=== PATIENT | female | born 1975 | race Caucasian/White ===

== ENCOUNTER → 2017-06-26 | Outpatient (CLI) | payer BC | LOC: LAB 14:52 | DX: R63.4 Abnormal weight loss (principal); R11.2 Nausea with vomiting, unspecified; Z98.84 Bariatric surgery status ==

== ENCOUNTER → 2018-11-04 | Outpatient (CLI) | payer BC ==
[2018-11-04 15:55] LABS: URINE WBC 0 /hpf (0-3)
[2018-11-04 18:27] LABS: ALBUMIN 4.8 g/dL (3.5-5.0); CALCIUM 9.7 mg/dL (8.4-10.2); POTASSIUM 3.8 mmol/L (3.6-5.0); TOTAL BILIRUBIN 0.5 mg/dL (0.2-1.3); TOTAL PROTEIN 7.8 g/dL (6.3-8.2)
[2018-11-04 18:39] LABS: EOS # 0.1 (0.04-0.40); EOS % 1.4 % (1.0-5.0); HEMATOCRIT 42.7 % (37.0-47.0); HEMOGLOBIN 14.1 g/dL (12.5-16.0); MEAN CELL VOLUME 96 fl (78-100); MEAN CORPUSCULAR HEMOGLOBIN 32 pg (27-31); MEAN CORPUSCULAR HGB CONC 33 g/dL (33-37); MEAN PLATELET VOLUME 9.1 fl (7.4-10.4); MONO # 0.4 (0.20-0.80); NEU # 4.6 (1.40-6.50); PLATELET COUNT 296 K/mm3 (130-400); RED BLOOD COUNT 4.46 M/mm3 (4.10-5.30); RED CELL DISTRIBUTION WIDTH 13.7 % (11.5-14.5); WHITE BLOOD COUNT 7.2 K/mm3 (4.8-10.8)
[2018-11-04 20:46] LABS: URINE APPEARANCE CLEAR; URINE COLOR YELLOW
[2018-11-04 20:47] LABS: PH-URINE 6.5 (5.0 - 8.0); URINE GLUCOSE NEGATIVE (NEGATIVE); URINE KETONE NEGATIVE (NEGATIVE); URINE PROTEIN(semi-quant) NEGATIVE (NEGATIVE)
[2018-11-04 20:49] LABS: URINE BILIRUBIN NEGATIVE (NEGATIVE); URINE BLOOD NEGATIVE (NEGATIVE); URINE LEUKOCYTE ESTERASE NEGATIVE (NEGATIVE); URINE NITRATE NEGATIVE (NEGATIVE); URINE UROBILINOGEN NORMAL (NORMAL)
== END ==
LOC: LAB 15:48
PROVIDERS: Family Medicine
DX: R05 Cough (principal); Z11.1 Encounter for screening for respiratory tuberculosis; R50.9 Fever, unspecified; R53.83 Other fatigue; E55.9 Vitamin D deficiency, unspecified; Z98.84 Bariatric surgery status; Z98.890 Other specified postprocedural states

== ENCOUNTER → 2019-02-09 | Outpatient (CLI) | payer BC ==
[2019-02-09 14:41] LABS: EOS # 0.1 (0.04-0.40); EOS % 1.6 % (1.0-5.0); HEMATOCRIT 38.3 % (37.0-47.0); HEMOGLOBIN 12.2 g/dL (12.5-16.0); LYMPH# 1.8 (1.50-4.00); MEAN CELL VOLUME 97 fl (78-100); MEAN CORPUSCULAR HEMOGLOBIN 31 pg (27-31); MEAN CORPUSCULAR HGB CONC 32 g/dL (33-37); MEAN PLATELET VOLUME 8.9 fl (7.4-10.4); MONO # 0.5 (0.20-0.80); NEU # 4.9 (1.40-6.50); PLATELET COUNT 218 K/mm3 (130-400); RED BLOOD COUNT 3.96 M/mm3 (4.10-5.30); RED CELL DISTRIBUTION WIDTH 13.8 % (11.5-14.5); WHITE BLOOD COUNT 7.4 K/mm3 (4.8-10.8)
[2019-02-09 14:49] LABS: CALCIUM 9.1 mg/dL (8.4-10.2); POTASSIUM 3.6 mmol/L (3.6-5.0); TOTAL BILIRUBIN 0.4 mg/dL (0.2-1.3)
== END ==
LOC: LAB 14:22
PROVIDERS: Family Medicine
DX: E87.1 Hypo-osmolality and hyponatremia (principal); G62.9 Polyneuropathy, unspecified

== ENCOUNTER → 2019-02-23 | Outpatient (CLI) | payer BC | LOC: RAD 08:40 | DX: G43.109 Migraine with aura, not intractable, without status migrainosus (principal) | CPT/HCPCS: Q9967 ==

== ENCOUNTER → 2019-08-04 | Outpatient (CLI) | payer BC ==
[2019-08-04 12:01] LABS: ALBUMIN 4.2 g/dL (3.5-5.0)
[2019-08-04 12:02] LABS: EOS # 0.1 (0.04-0.40); EOS % 1.9 % (1.0-5.0); HEMATOCRIT 40.2 % (37.0-47.0); HEMOGLOBIN 13.6 g/dL (12.5-16.0); LYMPH# 2.2 (1.50-4.00); MEAN CELL VOLUME 96 fl (78-100); MEAN CORPUSCULAR HEMOGLOBIN 32 pg (27-31); MEAN CORPUSCULAR HGB CONC 34 g/dL (33-37); MEAN PLATELET VOLUME 9.1 fl (7.4-10.4); MONO # 0.5 (0.20-0.80); NEU # 3.9 (1.40-6.50); PLATELET COUNT 244 K/mm3 (130-400); RED BLOOD COUNT 4.21 M/mm3 (4.10-5.30); RED CELL DISTRIBUTION WIDTH 12.9 % (11.5-14.5); WHITE BLOOD COUNT 6.7 K/mm3 (4.8-10.8)
[2019-08-04 12:03] LABS: CALCIUM 9.3 mg/dL (8.3-10.5)
[2019-08-04 12:04] LABS: TOTAL PROTEIN 7.1 g/dL (6.4-8.3)
[2019-08-04 12:06] LABS: TOTAL BILIRUBIN 0.4 mg/dL (0.2-1.2)
== END ==
LOC: LAB 11:37
PROVIDERS: Family Medicine
DX: E87.1 Hypo-osmolality and hyponatremia (principal); Z98.84 Bariatric surgery status

== ENCOUNTER → 2020-05-17 | Outpatient (CLI) | payer BC | LOC: RAD 12:10 | DX: M89.8X1 Other specified disorders of bone, shoulder (principal) ==

== ENCOUNTER → 2020-10-10 | Outpatient (CLI) | payer BC ==
[2020-10-10 18:34] LABS: EOS # 0.1 (0.04-0.40); EOS % 1.1 % (1.0-5.0); HEMATOCRIT 39.6 % (37.0-47.0); HEMOGLOBIN 12.8 g/dL (12.5-16.0); LYMPH# 2.4 (1.50-4.00); MEAN CELL VOLUME 93 fl (78-100); MEAN CORPUSCULAR HEMOGLOBIN 30 pg (27-31); MEAN CORPUSCULAR HGB CONC 32 g/dL (33-37); MEAN PLATELET VOLUME 8.5 fl (7.4-10.4); MONO # 0.7 (0.20-0.80); NEU # 8.1 (1.40-6.50); PLATELET COUNT 245 K/mm3 (130-400); RED BLOOD COUNT 4.24 M/mm3 (4.10-5.30); RED CELL DISTRIBUTION WIDTH 13.9 % (11.5-14.5); WHITE BLOOD COUNT 11.4 K/mm3 (4.8-10.8)
[2020-10-10 18:53] LABS: ALBUMIN 4.2 g/dL (3.5-5.0); POTASSIUM 3.9 mmol/L (3.5-5.1)
[2020-10-10 18:54] LABS: CALCIUM 8.9 mg/dL (8.3-10.5)
[2020-10-10 18:55] LABS: TOTAL PROTEIN 7.6 g/dL (6.4-8.3)
[2020-10-10 18:57] LABS: TOTAL BILIRUBIN 0.3 mg/dL (0.2-1.2)
== END ==
LOC: LAB 18:07
PROVIDERS: Family Medicine
DX: E87.1 Hypo-osmolality and hyponatremia (principal); E78.5 Hyperlipidemia, unspecified; E53.9 Vitamin B deficiency, unspecified; E55.9 Vitamin D deficiency, unspecified

== ENCOUNTER 2020-11-14 12:03 | Emergency (ER) | payer BC ==
[2020-11-14] MEDS ORDERED: FLOVENT HFA12 G1 IH (12:24)
[2020-11-14] MEDS ORDERED: PREDNISONE20 M1 PO (12:24)
[2020-11-14] MEDS ORDERED: FUROSEMIDE20 MG PO (12:24)
[2020-11-14] MEDS ORDERED: AMOXICILLIN AND1 TA2 PO (12:24)
[2020-11-14 12:48] LABS: HEMOGLOBIN 13.5 g/dL (12.5-16.0); MEAN CELL VOLUME 94 fl (78-100); MEAN CORPUSCULAR HEMOGLOBIN 30 pg (27-31); MEAN CORPUSCULAR HGB CONC 32 g/dL (33-37); PLATELET COUNT 287 K/mm3 (130-400); RED BLOOD COUNT 4.47 M/mm3 (4.10-5.30); RED CELL DISTRIBUTION WIDTH 14.7 % (11.5-14.5); WHITE BLOOD COUNT 12.6 K/mm3 (4.8-10.8)
[2020-11-14 12:53] LABS: ALBUMIN 4.4 g/dL (3.5-5.0); POTASSIUM 3.5 mmol/L (3.5-5.1)
[2020-11-14 12:54] LABS: CALCIUM 8.8 mg/dL (8.3-10.5)
[2020-11-14 12:55] LABS: TOTAL PROTEIN 7.6 g/dL (6.4-8.3)
[2020-11-14 12:57] LABS: TOTAL BILIRUBIN 0.3 mg/dL (0.2-1.2)
[2020-11-14 13:00] LABS: D-DIMER 0.39 mg/L FEU (0.15-0.50)
[2020-11-14 13:10] LABS: LYMPHOCYTE 10 % (20-51); MONOCYTE 3 % (3-10); NEUTROPHILS 85 % (42-75)
[2020-11-14 13:51] LABS: ERYTHROCYTE SEDIMENTATION RATE 24 mm/hr (0-20)
[2020-11-14 15:20] VITALS: BP 107/67
== END 2020-11-14 14:42 | disposition home or self-care (01) ==
LOC: ED 12:03
PROVIDERS: Physician Assistant
DX: U07.1 COVID-19 (principal); J45.909 Unspecified asthma, uncomplicated; Z98.84 Bariatric surgery status; Z90.710 Acquired absence of both cervix and uterus; Z90.49 Acquired absence of other specified parts of digestive tract; Z88.6 Allergy status to analgesic agent; Z79.52 Long term (current) use of systemic steroids

== ENCOUNTER → 2021-02-24 | Outpatient (CLI) | payer BC ==
[~2021-02-24] MED LIST: AMOXICILLIN AND1 TA2 PO; FLOVENT HFA12 G1 IH; FUROSEMIDE20 MG PO; PREDNISONE20 M1 PO
== END ==
LOC: RAD 14:33
DX: M25.522 Pain in left elbow (principal)

== ENCOUNTER → 2021-09-01 | Outpatient (CLI) | payer BC ==
[2021-09-01 11:45] LABS: BASO # 0.03 K/mm3 (0.02-0.10); EOS # 0.08 K/mm3 (0.04-0.40); EOS % 1.1 % (1.0-5.0); HEMATOCRIT 40.1 % (37.0-47.0); HEMOGLOBIN 12.7 g/dL (12.5-16.0); LYMPH# 1.84 K/mm3 (1.50-4.00); MEAN CELL VOLUME 96 fl (78-100); MEAN CORPUSCULAR HEMOGLOBIN 30 pg (27-31); MEAN CORPUSCULAR HGB CONC 32 g/dL (33-37); MEAN PLATELET VOLUME 8.6 fl (7.4-10.4); MONO # 0.46 K/mm3 (0.20-0.80); NEU # 4.56 K/mm3 (1.40-6.50); PLATELET COUNT 275 K/mm3 (130-400); RED BLOOD COUNT 4.19 M/mm3 (4.10-5.30); RED CELL DISTRIBUTION WIDTH 14.3 % (11.5-14.5)
[2021-09-01 11:56] LABS: POTASSIUM 4.4 mmol/L (3.5-5.1)
[2021-09-01 11:57] LABS: ALBUMIN 4.2 g/dL (3.5-5.0)
[2021-09-01 11:59] LABS: TOTAL PROTEIN 7.6 g/dL (6.4-8.3)
[2021-09-01 12:01] LABS: TOTAL BILIRUBIN 0.4 mg/dL (0.2-1.2)
== END ==
LOC: LAB 11:24
PROVIDERS: Family Medicine
DX: Z00.00 Encounter for general adult medical examination without abnormal findings (principal); M25.551 Pain in right hip; E78.5 Hyperlipidemia, unspecified; E55.9 Vitamin D deficiency, unspecified

== ENCOUNTER → 2021-09-12 | Outpatient (CLI) | payer BC | LOC: RAD 07:20 | DX: M51.36 Other intervertebral disc degeneration, lumbar region (principal); M47.817 Spondylosis without myelopathy or radiculopathy, lumbosacral region; M47.816 Spondylosis without myelopathy or radiculopathy, lumbar region ==

== ENCOUNTER → 2021-10-18 | Outpatient (CLI) | payer BC | LOC: RAD 17:22 | DX: M19.042 Primary osteoarthritis, left hand (principal) ==

== ENCOUNTER → 2022-02-02 | Outpatient (CLI) | payer BC ==
[2022-02-02 17:06] LABS: BASO # 0.04 K/mm3 (0.02-0.10); EOS # 0.11 K/mm3 (0.04-0.40); EOS % 1.7 % (1.0-5.0); HEMATOCRIT 40.3 % (37.0-47.0); HEMOGLOBIN 13.4 g/dL (12.5-16.0); LYMPH# 2.02 K/mm3 (1.50-4.00); MEAN CELL VOLUME 96 fl (78-100); MEAN CORPUSCULAR HEMOGLOBIN 32 pg (27-31); MEAN CORPUSCULAR HGB CONC 33 g/dL (33-37); MONO # 0.43 K/mm3 (0.20-0.80); NEU # 3.81 K/mm3 (1.40-6.50); PLATELET COUNT 286 K/mm3 (130-400); RED BLOOD COUNT 4.18 M/mm3 (4.10-5.30); WHITE BLOOD COUNT 6.4 K/mm3 (4.8-10.8)
[2022-02-02 17:07] LABS: ALBUMIN 4.4 g/dL (3.5-5.0)
[2022-02-02 17:10] LABS: TOTAL PROTEIN 7.5 g/dL (6.4-8.3)
[2022-02-02 17:12] LABS: TOTAL BILIRUBIN 0.4 mg/dL (0.2-1.2)
== END ==
LOC: LAB 16:11
PROVIDERS: Family Medicine
DX: Z00.00 Encounter for general adult medical examination without abnormal findings (principal); E55.9 Vitamin D deficiency, unspecified; E03.9 Hypothyroidism, unspecified; E53.8 Deficiency of other specified B group vitamins

== ENCOUNTER → 2022-06-21 | Outpatient (CLI) | payer BC ==
[2022-06-21 17:58] LABS: BASO # 0.03 K/mm3 (0.02-0.10); EOS # 0.14 K/mm3 (0.04-0.40); EOS % 2.1 % (1.0-5.0); HEMOGLOBIN 13.3 g/dL (12.5-16.0); LYMPH# 1.98 K/mm3 (1.50-4.00); MEAN CELL VOLUME 99 fl (78-100); MEAN CORPUSCULAR HEMOGLOBIN 32 pg (27-31); MEAN CORPUSCULAR HGB CONC 32 g/dL (33-37); MONO # 0.45 K/mm3 (0.20-0.80); NEU # 3.99 K/mm3 (1.40-6.50); PLATELET COUNT 311 K/mm3 (130-400); RED BLOOD COUNT 4.14 M/mm3 (4.10-5.30); RED CELL DISTRIBUTION WIDTH 13.1 % (11.5-14.5); WHITE BLOOD COUNT 6.6 K/mm3 (4.8-10.8)
[2022-06-21 19:09] LABS: ERYTHROCYTE SEDIMENTATION RATE 7 mm/hr (0-20)
== END ==
LOC: LAB 15:58 → RAD 15:58
PROVIDERS: Family Medicine
DX: M50.33 Other cervical disc degeneration, cervicothoracic region (principal); M51.36 Other intervertebral disc degeneration, lumbar region; M47.812 Spondylosis without myelopathy or radiculopathy, cervical region; M19.022 Primary osteoarthritis, left elbow; M79.631 Pain in right forearm; R51.9 Headache, unspecified

== ENCOUNTER 2022-08-12 19:36 | Emergency (ER) | payer BC ==
[2022-08-12] MEDS ORDERED: ADDERALL 10 MG10 MG PO (19:51)
[2022-08-12 20:24] VITALS: BP 159/84
== END 2022-08-12 20:25 | disposition home or self-care (01) ==
LOC: ED 19:36
DX: S01.01XA Laceration without foreign body of scalp, initial encounter (principal); S01.511A Laceration without foreign body of lip, initial encounter; Z28.310 Unvaccinated for COVID-19; Y04.8XXA Assault by other bodily force, initial encounter

== ENCOUNTER → 2022-12-11 | Outpatient (CLI) | payer BC ==
[~2022-12-11] MED LIST changes: +ADDERALL 10 MG10 MG PO
== END ==
LOC: RAD 15:25
DX: R90.89 Other abnormal findings on diagnostic imaging of central nervous system (principal)
CPT/HCPCS: A9575

== ENCOUNTER → 2022-12-18 | Outpatient (CLI) | payer BC ==
[2022-12-18 16:16] LABS: BASO # 0.03 K/mm3 (0.02-0.10); EOS # 0.12 K/mm3 (0.04-0.40); EOS % 2.7 % (1.0-5.0); HEMATOCRIT 39.5 % (37.0-47.0); HEMOGLOBIN 13.1 g/dL (12.5-16.0); LYMPH# 1.51 K/mm3 (1.50-4.00); MEAN CELL VOLUME 100 fl (78-100); MEAN CORPUSCULAR HEMOGLOBIN 33 pg (27-31); MEAN CORPUSCULAR HGB CONC 33 g/dL (33-37); MEAN PLATELET VOLUME 8.6 fl (7.4-10.4); MONO # 0.34 K/mm3 (0.20-0.80); NEU # 2.39 K/mm3 (1.40-6.50); PLATELET COUNT 230 K/mm3 (130-400); RED BLOOD COUNT 3.94 M/mm3 (4.10-5.30); RED CELL DISTRIBUTION WIDTH 13.5 % (11.5-14.5); WHITE BLOOD COUNT 4.4 K/mm3 (4.8-10.8)
[2022-12-18 16:31] LABS: ALBUMIN 4.2 g/dL (3.5-5.0); POTASSIUM 4.1 mmol/L (3.5-5.1)
[2022-12-18 16:32] LABS: CALCIUM 9.8 mg/dL (8.3-10.5)
[2022-12-18 16:33] LABS: TOTAL PROTEIN 7.1 g/dL (6.4-8.3)
[2022-12-18 16:35] LABS: TOTAL BILIRUBIN 0.4 mg/dL (0.2-1.2)
[2022-12-18 23:31] LABS: T3 FREE 2.3 pg/mL (1.7-3.7)
[2022-12-19 22:22] LABS: HEPATITIS C ANTIBODY Negative (Negative)
[2022-12-20 12:00] LABS: LYME DISEASE EIA Negative (Negative)
== END ==
LOC: LAB 15:55
PROVIDERS: Family Medicine
DX: G70.00 Myasthenia gravis without (acute) exacerbation (principal); E55.9 Vitamin D deficiency, unspecified; E53.9 Vitamin B deficiency, unspecified; E78.1 Pure hyperglyceridemia; E03.9 Hypothyroidism, unspecified; W57.XXXA Bitten or stung by nonvenomous insect and other nonvenomous arthropods, initial encounter

== ENCOUNTER → 2023-08-30 | Outpatient (CLI) | payer OTHER, BC | LOC: RAD 09:29 | DX: M17.12 Unilateral primary osteoarthritis, left knee (principal); M25.462 Effusion, left knee; M25.522 Pain in left elbow ==

== ENCOUNTER → 2024-01-20 | Outpatient (CLI) | payer BC ==
[~2024-01-20] MED LIST changes: +DULOXETINE60 MG PO; +MULTIVITAMIN1 EACH PO; +PANTOPRAZOLE SO40 MG PO; +PERCOCET 325 MG1 TAB PO; +TIZANIDINE HYDRO4 MG PO; +VITAMIN D31250 MC2 PO
== END ==
LOC: LAB 11:43
DX: E03.9 Hypothyroidism, unspecified (principal)

== ENCOUNTER → 2024-04-14 | Outpatient (CLI) | payer BC | LOC: RAD 12:00 | DX: M51.44 Schmorl's nodes, thoracic region (principal) ==